=== PATIENT | male | born 1965 | race African-American/Black ===

== ENCOUNTER 2017-09-13 18:09 | Emergency (ER) | payer BC, OTHER ==
[~2017-09-13] VITALS: Ht 175.3 cm; Wt 104.3 kg
[~2017-09-13 18:09] MED LIST: ACETAMINOPHEN325 M1 OR; AMBIEN 5 MG TABL5 M1 PO; CEFTIN 250 MG250 MG PO; CEFTIN500 MG PO; CITRATE OF MAG296 ML PO; COLACE100 MG PO; DIFLUCAN200 MG PO; DILTIAZEM 24HR180 M1 PO; DIPHENHYDRAMINE25 M3 OR; ENOXAPARIN40 MG/0.1 SUBQ; HYDROCODON-ACE1 EAC7 OR; HYDROCODON-ACE1 EACH PO; KEFLEX500 MG PO; NAPROSYN500 MG PO; NEXIUM40 MG PO; NORCO 5-325 TA1 EACH PO; ONDANSETRON HCL4 M2 OR; PERCOCET 10-321 EACH PO; PERCOCET PO; ROCEPHIN 11 GM/100 M IV; SENOKOT-S1 TA1 PO; SYNTHROID150 MCG OR; TAMIFLU75 MG PO; THERA-M CAPLET1 EAC1 OR; TYLENOL325 MG PO; ULTRAM 50MG TAB50 MG PO; VALIUM5 MG PO; ZOFRAN4 MG PO; ZPAK PO
[2017-09-13 18:54] LABS: ABSOLUTE NEUTROPHILS 2.4 thou/uL (1.4-8.2); BASOPHILS 0.3 % (0.0-2.0); EOSINOPHILS 4.3 % (0.0-3.0); HEMATOCRIT 37.4 % (42.0-52.0); HEMOGLOBIN 12.3 gm/dL (14.0-18.0); LYMPHOCYTES 34.9 % (24.0-44.0); MCH 27.6 pg (26.0-34.0); MCHC 32.8 g/dL (28.0-37.0); MCV 84.1 fL (80.0-100.0); MONOCYTES 10.5 % (1.0-8.0); PLATELET COUNT 157 thou/uL (150-400); RBC 4.45 mil/uL (4.50-6.00); RDW 15.3 % (10.5-14.5); WBC 4.8 thou/uL (4.0-11.0)
[2017-09-13 18:57] LABS: MANUAL DIFF NO
[2017-09-13 19:05] LABS: POTASSIUM 3.2 mmol/L (3.5-5.1)
[2017-09-13 19:07] LABS: APTT 25.1 Seconds (24.5-32.8); INR 1.1
[2017-09-13] MEDS ORDERED: NORFLEX100 MG PO (19:54)
== END 2017-09-13 20:05 | disposition home or self-care (01) ==
LOC: ER 18:09
PROVIDERS: Emergency Medicine
DX: R51 Headache (principal); E87.6 Hypokalemia; K21.9 Gastro-esophageal reflux disease without esophagitis; G89.29 Other chronic pain; M19.90 Unspecified osteoarthritis, unspecified site; Z86.61 Personal history of infections of the central nervous system; Z98.890 Other specified postprocedural states; Z88.1 Allergy status to other antibiotic agents

== ENCOUNTER 2019-10-27 12:38 | Emergency (ER) | payer BC, OTHER ==
[~2019-10-27] VITALS: Ht 175.3 cm; Wt 108.9 kg
[~2019-10-27 12:38] MED LIST changes: +NORFLEX100 MG PO
[2019-10-27 12:55] LABS: URINE BILIRUBIN NEGATIVE (Negative); URINE BLOOD NEGATIVE (Negative); URINE CLARITY CLEAR; URINE COLOR YELLOW; URINE GLUCOSE-RANDOM* NEGATIVE (Negative); URINE KETONES NEGATIVE (Negative); URINE LEUKOCYTES-REFLEX NEGATIVE (Negative); URINE NITRITE-REFLEX NEGATIVE (Negative); URINE PROTEIN (DIPSTICK) TRACE (Negative); URINE SPECIFIC GRAVITY >= 1.030 (1.005-1.035); URINE UROBILINOGEN 0.2 E.U./dl (0.2-1.0)
[2019-10-27 13:12] LABS: ABSOLUTE NEUTROPHILS 4.5 thou/uL (1.4-8.2); BASOPHILS 0.3 % (0.0-2.0); EOSINOPHILS 2.5 % (0.0-3.0); HEMATOCRIT 41.2 % (42.0-52.0); HEMOGLOBIN 13.5 gm/dL (14.0-18.0); LYMPHOCYTES 21.3 % (24.0-44.0); MCH 27.7 pg (26.0-34.0); MCHC 32.7 g/dL (28.0-37.0); MCV 84.7 fL (80.0-100.0); MONOCYTES 10.8 % (1.0-8.0); PLATELET COUNT 167 thou/uL (150-400); POLYS 65.1 % (36.0-66.0); RBC 4.87 mil/uL (4.50-6.00); WBC 6.9 thou/uL (4.0-11.0)
[2019-10-27 13:15] LABS: CALCIUM 9.6 mg/dL (8.5-10.1); CREATININE 1.1 mg/dL (0.7-1.3)
[2019-10-27 13:21] LABS: ALBUMIN 4.1 g/dL (3.4-5.0); TOTAL BILIRUBIN 0.7 mg/dL (<0.1-1.0); TOTAL PROTEIN 7.5 g/dL (6.4-8.2)
[2019-10-27] MEDS ORDERED: BENTYL 20 MG TA20 M1 PO (15:36)
[2019-10-27] MEDS ORDERED: MOBIC15 MG PO (15:36)
[2019-10-27 15:38] VITALS: BP 142/83
== END 2019-10-27 15:38 | disposition home or self-care (01) ==
LOC: ER 12:38
PROVIDERS: Emergency Medicine
DX: R10.84 Generalized abdominal pain (principal); K21.9 Gastro-esophageal reflux disease without esophagitis; G47.33 Obstructive sleep apnea (adult) (pediatric); Z88.5 Allergy status to narcotic agent; Z88.1 Allergy status to other antibiotic agents; Z90.49 Acquired absence of other specified parts of digestive tract